=== PATIENT | male | born 1940 | race Caucasian/White ===

== ENCOUNTER 2021-01-03 05:31 | Day surgery (SDC) | payer MEDICARE ==
[2020-12-29 16:34] LABS: BASOPHILS % (AUTO) 0.5 % (0-1); EOSINOPHILS # (AUTO) 0.1 X10'3 (0-0.9); EOSINOPHILS % (AUTO) 1.6 % (0-6); LYMPHOCYTES # (AUTO) 1.4 X10'3 (1.1-4.8); LYMPHOCYTES % (AUTO) 20.8 % (21-51); MEAN CORPUSCULAR HEMOGLOBIN 30.4 PG (27.0-31.0); MEAN CORPUSCULAR HGB CONC 33.4 g/dL (33.0-36.5); MEAN PLATELET VOLUME 8.5 FL (7.4-10.4); MONOCYTES # (AUTO) 0.5 X10'3 (0-0.9); MONOCYTES % (AUTO) 7.8 % (2-12); NEUTROPHILS # (AUTO) 4.6 X10'3 (1.8-7.7); NEUTROPHILS % (AUTO) 69.3 % (42-75); PRE OP HEMATOCRIT 44.8 % (42.0-52.0); PRE OP HEMOGLOBIN 14.9 g/dL (14.0-17.9); PRE OP PLATELET COUNT 197 X10'3 (140-440); RED BLOOD COUNT 4.92 X10'6 (4.70-6.10); RED CELL DISTRIBUTION WIDTH 13.3 % (11.5-14.5)
[2020-12-29 16:45] LABS: PRE OP PROTIME 10.3 SECONDS (9.0-12.0)
[2020-12-29 16:50] LABS: ALBUMIN 4.2 G/DL (3.4-5.0); ALBUMIN/GLOBULIN RATIO 1.2 (1.1-1.5); ALKALINE PHOSPHATASE 80 IU/L (46-116); BLOOD UREA NITROGEN 22 MG/DL (7-18); BUN/CREATININE RATIO 18.2 (5.4-32.0); CALCIUM 9.3 MG/DL (8.5-10.1); CHLORIDE 105 MMOL/L (99-107); CREATININE 1.21 MG/DL (0.60-1.10); PRE OP ALT 25 U/L (30-65); PRE OP ANION GAP 10 (8-16); PRE OP AST 19 U/L (10-37); PRE OP BILIRUB, TOTAL 0.3 MG/DL (0.0-1.0); PRE OP GLUCOSE 91 MG/DL (70-104); PRE OP POTASSIUM 4.1 MMOL/L (3.4-5.1); PRE OP SODIUM 143 MMOL/L (135-145); TOTAL CARBON DIOXIDE 27.8 MMOL/L (24-32); TOTAL PROTEIN 7.7 G/DL (6.4-8.2); eGFR 58 ML/MIN
[2021-01-03] VITALS (22 sets, daily range): BP systolic 132–207; BP diastolic 47–95
[~2021-01-03] VITALS: Ht 180.3 cm; Wt 93.9 kg
[~2021-01-03 05:31] MED LIST: AMLO2.5T2 PO; ASPI-1265 PO; ATOR10TA87 PO; CYAN500T71 PO; DOCUMENT DATE & TIME OF BETA-BLOCKER PO ONE; ERGO400C PO; LOSA25TA96 PO; METO-137 PO; SYN0.1T PO; TRAM50TA2 PO; TRAZ-251 PO; VITA400C67 PO; [UNRECOGNIZED DRUG - OTHER] PO; ceFAZolin 2gm in dextrose, iso 50 ML IV ONE; famotidine 20mg tablet PO ONE; vancomycin 1,500 MG in NS 300ml IV soln IV ONE
[2021-01-03] MEDS: ringers solution, lacted 1,000 ML IV SCH ×2 (06:36→16:12)
[2021-01-03] MEDS ORDERED: BUPIVAcaine/PF 2.5 mg/ml (0.25%) 30ml vial ONE (07:32)
[2021-01-03] MEDS ORDERED: fentaNYL/PF 50MCG/1 ML 2ML syringe ONE (07:45)
[2021-01-03] MEDS ORDERED: midazolam 1 mg/ML 2ml injection ONE (07:46)
[2021-01-03] MEDS ORDERED: propofol inj 20 ML IV ONE (08:03)
[2021-01-03] MEDS ORDERED: dexamethasone sod phosphate 4mg/ml inj. ONE (08:03)
[2021-01-03] MEDS ORDERED: LIDOcaine 2% (20mg/ml) 5ml vial ONE (08:03)
[2021-01-03] MEDS ORDERED: ondansetron/PF 4mg/2ml inj ONE (08:04)
[2021-01-03] MEDS ORDERED: labetalol 20mg/4ml (5mg/ml) syringe IV PRN (08:55)
[2021-01-03] MEDS ORDERED: ondansetron/PF 4mg/2ml inj IV PRN ×2 (08:55→12:05)
[2021-01-03] MEDS ORDERED: ringers solution, lacted 1,000 ML IV SCH (08:55)
[2021-01-03] MEDS ORDERED: morphine 2 MG/ML inj. syringe IV PRN (08:55)
[2021-01-03] MEDS ORDERED: proCHLORperazine 10 MG/2 ml inj IV PRN (08:55)
[2021-01-03] MEDS ORDERED: morphine 4 MG/ML inj SYRINge IV PRN (08:55)
[2021-01-03] MEDS ORDERED: ketorolac trometh. 30mg/ml inj. IV ONE (08:55)
[2021-01-03] MEDS ORDERED: meperidine/PF 25mg/ml syringe IV PRN ×3 (08:55)
[2021-01-03] MEDS ORDERED: acetaminophen 1,000mg/100ml IV 100 ML IV PRN (08:55)
[2021-01-03] MEDS ORDERED: hydrALAZINE 20mg/ml inj. IV PRN (08:55)
[2021-01-03] MEDS ORDERED: morphine 10mg/ml inj. ONE (10:14)
--- NOTE | 2021-01-03 11:15 | NUR ---
Received from OR via , accompanied by Anesthesiologist and report given by Anesthesiolgist. PT VERY DROWSY, NO S/S OF DISTRESS/DISCOMFORT. RIGHT HAND TO MID FOREARM W/SPLINT AND ANDREW WRAP COVERING CDI. 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 Addendum: 01/03/21 at 1529 by Stephanie Quesada RN Amended: Links added.
[2021-01-03] MEDS ORDERED: traZODone 50mg tablet PO PRN (12:00)
[2021-01-03] MEDS ORDERED: acetaminophen 325mg tablet PO PRN (12:05)
[2021-01-03] MEDS ORDERED: HYDROmorphone inj. 0.5 MG/0.5 ML DISP.SYRIN IV PRN (12:05)
[2021-01-03] MEDS ORDERED: HYDROcodone/acetaminophen 10/325mg tab PO PRN (12:05)
[2021-01-03] MEDS ORDERED: bisacodyl 10mg suppository rectal RC PRN (12:05)
[2021-01-03] MEDS ORDERED: diphenhydrAMINE 25mg capsule PO PRN ×2 (12:05)
[2021-01-03] MEDS ORDERED: magnesium hydroxide 30ml (MOM) UD suspension PO PRN (12:05)
--- NOTE | 2021-01-03 13:40 | NUR ---
PT WAS GROGGY AND DIDN'T REMEMBER COMING INTO THE HOSPITAL AFTER HE WOKE UP FROM ANESTHESIA, DR PRITCHETT NOTIFED, CAME IN TO SEE PT, ASSESSED, PT WAS ABLE TO RECALL MEETING DR PRITCHETT AND DISCUSSING HIS LINE OF WORK, OKAY TO TRANSFER PT TO FLOOR. PT MUCH MORE ALERT AND NOW REMEMBERING PRIOR TO TRANSFER. Report called to receiving nurse. Transferred via GURNEY, PT ABLE TO AMBULATE W/1 ASSIST TO BED. 2 BAGS OF Belongings, UPPER PARTIAL AND FULL DENTURE BOTTOMS SENT W/PT. JET WIPER AT BEDSIDE TO RECEIVE PT. BLL, CALL LIGHT GIVEN, PT VERBALIZED UNDERSTANDING OF USE, SIDE RAILS UP X2. Special Issues communicated to receiving nurse. YES. Addendum: 01/03/21 at 1358 by Stephanie Quesada RN Amended: Links added.
[2021-01-03] MEDS: ceFAZolin/D5W- 1GM premix 50 ML IV SCH (15:59)
[2021-01-03] MEDS: HYDROcodone/acetaminophen 10/325mg tab PO PRN ×2 (16:00→19:58)
[2021-01-03] MEDS: potassium Cl 20mEq in NS 1,000 ML IV SCH (17:03)
[2021-01-03] MEDS: losartan 50mg tablet PO SCH (20:01)
[2021-01-03] MEDS: metoprolol tartrate 50mg tablet PO SCH (20:02)
[2021-01-03] MEDS ORDERED: sennosides 8.6mg tablet PO SCH (21:00)
[2021-01-04] MEDS: ceFAZolin/D5W- 1GM premix 50 ML IV SCH (01:15)
[2021-01-04] MEDS: HYDROcodone/acetaminophen 10/325mg tab PO PRN ×3 (01:25→10:53)
[2021-01-04 02:00] VITALS: BP 163/66
[2021-01-04] MEDS: potassium Cl 20mEq in NS 1,000 ML IV SCH (05:13)
[2021-01-04 06:00] VITALS: BP 146/67
--- NOTE | 2021-01-04 06:30 | NUR ---
reported to days. noted pt ready to go home. has not ambulated to BR yet - PT to work with patient. may benefit from a sling for arm.
--- NOTE | 2021-01-04 06:41 | NUR ---
Patient in room ORTHO 4016. I have received report from chucho austin and had the opportunity to ask questions and assume patient care.
--- NOTE | 2021-01-04 07:08 | NUR ---
Patient in room ORTHO 4016. I have received report from OSORIO Sparks and had the opportunity to ask questions and assume patient care. Camelia Barnett RN will provide care for pt. I will monitor and assist when needed.
[2021-01-04] MEDS ORDERED: levoTHYROXINE 100mcg tablet PO SCH (08:00)
[2021-01-04] MEDS ORDERED: amLODIPine 5mg tablet PO SCH (08:00)
[2021-01-04 08:42] LABS: ALANINE AMINOTRANSFERASE 17 U/L (12-78); ALBUMIN 3.2 G/DL (3.4-5.0); ALBUMIN/GLOBULIN RATIO 1.1 (1.1-1.5); ALKALINE PHOSPHATASE 66 IU/L (46-116); ANION GAP 9 (8-16); ASPARTATE AMINO TRANSFERASE 13 U/L (10-37); BILIRUBIN,TOTAL 0.5 MG/DL (0.1-1.0); BLOOD UREA NITROGEN 18 MG/DL (7-18); CALCIUM 8.1 MG/DL (8.5-10.1); CHLORIDE 108 MMOL/L (99-107); GLUCOSE 105 MG/DL (70-104); POTASSIUM 4.6 MMOL/L (3.5-5.1); SODIUM 143 MMOL/L (135-145); TOTAL CARBON DIOXIDE 26.4 MMOL/L (24-32); TOTAL PROTEIN 6.2 G/DL (6.4-8.2); eGFR 58 ML/MIN
[2021-01-04] MEDS: metoprolol tartrate 50mg tablet PO SCH (08:55)
[2021-01-04] MEDS: losartan 50mg tablet PO SCH (08:55)
[2021-01-04 10:00] VITALS: BP 122/52
[2021-01-04] MEDS ORDERED: HYDR-3973 PO (11:58)
--- NOTE | 2021-01-04 12:33 | NUR ---
PAGED DIRECTOR OF DISTRIBUTION... PT IN 4010 NEEDS SPLINT/DRESSING CHANGED, R WRIST, THANK YOU
--- NOTE | 2021-01-04 14:05 | NUR ---
[employer] TECHNICIAN CHANGED SPLINT PER MD ORDER. ASKED ME TO TAKE PHOTO OF INCISION/ARM AND SEND TO MD. PHOTO WAS TAKEN, SENT TO [facility]. ALSO PAGED DR LOMELI WHO CALLED BACK. I EXPLAINED TO MD SWELLING AND ARM DISCOLORATION. MD SAID TO BE EXPECTED AND TO HAVE PT FOLLOW UP IN OFFICE ON THURSDAY JANUARY 07, 2021
--- NOTE | 2021-01-04 15:13 | NUR ---
Pt discharged at 1505. Belongings sent with patient. All questions/concerns addressed and answered. Educated pt on the importance of keeping his right arm elevated above his heart and to follow up with Dr. Dixon on sunday. Educated pt on s/s of infection, worsening symptoms, reasons to come to ER. Iv removed without complications. Pt discharged with with in private vehicle in stable condition
--- NOTE | 2021-01-04 15:38 | NUR ---
WHEELED PT DOWN TO IN PRIVATE VEHICLE. SHOWED PICTURE OF ARM WHILE SPLINT WAS BEING CHANGED. ADVISED AND PT TO GO DIRECTLY TO DR LOMELI OFFICE, SCHEDULE APPT FOR THURSDAY JANUARY 07, 2021, GET NEW RX FOR PN MED AND SHOW PHOTO AND ARM WHILE AT OFFICE. REINFORCED IMPORTANCE OF KEEPING ARM ABOVE HEART.
[2021-01-05] MEDS ORDERED: aspirin 81mg tab.chew PO SCH (08:00)
== END 2021-01-04 15:05 | disposition home or self-care (01) ==
LOC: PAS 05:31 → ORTHO 4S 17:20 → PAS 01-04 15:05
PROVIDERS: ATTEND Orthopaedic Surgery
DX: M19.031 Primary osteoarthritis, right wrist (principal); G56.01 Carpal tunnel syndrome, right upper limb; I10 Essential (primary) hypertension; Z79.899 Other long term (current) drug therapy; Z79.01 Long term (current) use of anticoagulants; Z79.82 Long term (current) use of aspirin; Z96.651 Presence of right artificial knee joint; Z87.891 Personal history of nicotine dependence; Z98.890 Other specified postprocedural states; Z72.89 Other problems related to lifestyle; Z85.828 Personal history of other malignant neoplasm of skin
CPT/HCPCS: 25825; 36415; 64721; 80053; 82948; 85025; 85610; 85730; 93005; A6223; C1713; J0131; J0690; J1100; J1885; J2001; J2250; J2270; J2405; J2704; J3010; J3370; J3480; J3490; J7040; A4618; A6449; A7000; G0378; J7120